=== PATIENT | male | born 1995 | race Caucasian/White ===

== ENCOUNTER → 2018-09-12 | Outpatient (CLI) | payer BC ==
[~2018-09-12] MED LIST: Bactrim Ds Tab1 EACH PO; CEPH500 PO; CYCL10 PO; METO10 PO; NAPR500 PO; OXYACE5T PO; Percocet 5-3251 EACH PO; Ultram50 MG PO
[2018-09-14 05:09] LABS: CHLAMYDIA TRACHOMATIS, NAA Negative (Negative); NEISSERIA GONORRHOEAE, NAA Negative (Negative)
== END ==
LOC: LAB 18:25 → LAB SHORT 18:25
PROVIDERS: Nurse Practitioner
DX: N34.1 Nonspecific urethritis (principal)
CPT/HCPCS: 87491; 87591

== ENCOUNTER 2020-02-15 00:49 | Emergency (ER) | payer BC ==
[~2020-02-15] VITALS: Ht 188 cm; Wt 122.5 kg
[2020-02-15] MEDS ORDERED: CEFP200 PO (02:42)
== END 2020-02-15 03:37 | disposition home or self-care (01) ==
LOC: ER 00:49
DX: K02.9 Dental caries, unspecified (principal); K08.89 Other specified disorders of teeth and supporting structures
CPT/HCPCS: 96372; 99283-25; A9270; A9270-GY; J1885

== ENCOUNTER → 2022-01-11 | Outpatient (CLI) | payer BC ==
[~2022-01-11] MED LIST changes: +CEFP200 PO
[2022-01-13 01:10] LABS: CHLAMYDIA TRACHOMATIS, NAA Negative (Negative)
== END ==
LOC: LAB 18:00 → LAB SHORT 18:00
PROVIDERS: Physician Assistant
DX: Z11.3 Encounter for screening for infections with a predominantly sexual mode of transmission (principal)
CPT/HCPCS: 87491; 87591